=== PATIENT | male | born 1965 | race Caucasian/White ===

== ENCOUNTER 2016-11-15 17:13 | Emergency (ER) | payer MEDICAID, OTHER ==
[~2016-11-15] VITALS: Wt 65.5 kg
[2016-11-15] MEDS ORDERED: CEPH-443 PO (17:56)
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
== END 2016-11-15 18:36 | disposition home or self-care (01) ==
LOC: FTE 17:13
DX: S20.412A Abrasion of left back wall of thorax, initial encounter (principal); Y04.0XXA Assault by unarmed brawl or fight, initial encounter
CPT/HCPCS: 99283

== ENCOUNTER 2017-04-20 20:43 | Emergency (ER) | payer SELFPAY ==
[~2017-04-20] VITALS: Ht 177.8 cm; Wt 60.5 kg
[~2017-04-20 20:43] MED LIST: CEPH-443 PO
[2017-04-20 21:05] VITALS: Ht 177.8 cm; Wt 60.5 kg
== END 2017-04-20 21:47 | disposition left against medical advice (07) ==
LOC: E/R 20:43
DX: Z53.21 Procedure and treatment not carried out due to patient leaving prior to being seen by health care provider (principal)

== ENCOUNTER 2017-04-26 20:11 | Emergency (ER) | payer SELFPAY ==
[~2017-04-26] VITALS: Ht 175.3 cm; Wt 65.0 kg
[2017-04-26 20:24] VITALS: Ht 175.3 cm; Wt 65.0 kg
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
[2017-04-26] MEDS ORDERED: DIPHENHYDRAMINE 50 MG CAP PO ONE (22:30)
[2017-04-26 22:31] LABS: ABNORMAL IP MESSAGE 1; BASOPHILS % 0.1 % (0.0-2.0); HEMATOCRIT 44.3 % (42.0-52.0); HEMOGLOBIN 15.2 g/dl (14.0-18.0); LYMPHOCYTES # 0.5 10^3/ul (0.8-2.9); LYMPHOCYTES % 6.3 % (15.0-51.0); MEAN CORPUSCULAR HEMOGLOBIN 31.8 pg (29.0-33.0); MEAN CORPUSCULAR HGB CONC 34.3 g/dl (32.0-37.0); MEAN CORPUSCULAR VOLUME 92.7 fl (82.0-101.0); MEAN PLATELET VOLUME 9.9 fl (7.4-10.4); MONOCYTE # 0.4 10^3/ul (0.3-0.9); MONOCYTES % 4.7 % (0.0-11.0); NEUTROPHIL # 6.8 10^3/ul (1.6-7.5); NEUTROPHILS % 88.6 % (39.0-77.0); PLATELET COUNT 277 10^3/UL (140-415); POSITIVE DIFF @See below; RED BLOOD COUNT 4.78 10^6/ul (4.70-6.10); RED CELL DISTRIBUTION WIDTH 11.3 % (11.5-14.5); WHITE BLOOD COUNT 7.7 10^3/ul (4.8-10.8)
[2017-04-26 22:33] LABS: ADD UMIC YES; UR ASCORBIC ACID NEGATIVE (NEGATIVE); UR BACTERIA FEW /HPF (NONE SEEN); UR BILIRUBIN (Dip) NEGATIVE (NEGATIVE); UR BLOOD (Dip) NEGATIVE (NEGATIVE); UR CLARITY SLIGHTLY CLOUDY (CLEAR); UR COLOR YELLOW (YELLOW); UR GLUCOSE (Dip) NEGATIVE (NEGATIVE); UR KETONES (Dip) 1+ mg/dL (NEGATIVE); UR LEUKOCYTE ESTERASE (Dip) NEGATIVE Leu/ul (NEGATIVE); UR MUCUS FEW /HPF (NONE SEEN); UR NITRITE (Dip) NEGATIVE (NEGATIVE); UR RBC 1 /HPF (0-5); UR SPECIFIC GRAVITY (Dip) 1.023 (1.003-1.030); UR TOTAL PROTEIN (Dip) 1+ mg/dl (NEGATIVE); UR UROBILINOGEN (Dip) 2+ mg/dL (NEGATIVE)
[2017-04-26 22:51] LABS: BARBITURATES Negative (NEGATIVE); BENZODIAZEPINES Negative (NEGATIVE); CANNABINOIDS Negative (NEGATIVE); COCAINE Positive (NEGATIVE); OPIATES Positive (NEGATIVE)
[2017-04-26] MEDS ORDERED: OXYC20TA41 PO (22:57)
[2017-04-26 23:04] LABS: ALANINE AMINOTRANSFERASE 25 IU/L (13-69); ALBUMIN 4.9 g/dl (3.3-4.9); ALBUMIN/GLOBULIN RATIO 1.02; ALKALINE PHOSPHATASE 142 IU/L (42-121); ANION GAP 15 (8-16); ASPARTATE AMINO TRANSFERASE 40 IU/L (15-46); BILIRUBIN,INDIRECT 0.5 mg/dl (0-1.1); BILIRUBIN,TOTAL 0.5 mg/dl (0.2-1.3); BLOOD UREA NITROGEN 25 mg/dl (7-20); CALCIUM 10.5 mg/dl (8.4-10.2); CARBON DIOXIDE 30 mmol/L (21-31); CHLORIDE 102 mmol/L (97-110); CREATININE 1.47 mg/dl (0.61-1.24); GLUCOSE 88 mg/dl (70-220); POTASSIUM 4.2 mmol/L (3.5-5.1); SODIUM 143 mmol/L (135-144); TOTAL PROTEIN 9.7 g/dl (6.1-8.1)
[2017-04-27 00:05] LABS: ETHANOL < 10.0 mg/dl
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
--- NOTE | 2017-04-27 05:52 | EN ---
Date/Time of Note Date/Time of Note DATE: 04/27/17 TIME: 05:51 ER Progress Note 4Observation Note: Time: [4] hours Family Hx: No Hypertension Evaluation: Multiple exams showed improving symptoms and no evidence of psychiatric decompensation BOO GONZALES Apr 27, 2017 05:52
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
[2017-04-27 12:30] VITALS: BP 130/64; PULSE 74; RESP 22; TEMP 98.3
[2017-04-27] MEDS ORDERED: OLAN5TAB5 PO ×2 (12:45→13:41)
== END 2017-04-27 14:38 | disposition home or self-care (01) ==
LOC: E/R 20:11
DX: R45.1 Restlessness and agitation (principal); L29.9 Pruritus, unspecified; F17.210 Nicotine dependence, cigarettes, uncomplicated; R40.2142 Coma scale, eyes open, spontaneous, at arrival to emergency department; R40.2252 Coma scale, best verbal response, oriented, at arrival to emergency department; R40.2362 Coma scale, best motor response, obeys commands, at arrival to emergency department
CPT/HCPCS: 36415; 80053; 80306; 80307; 81001; 85025; 99283

== ENCOUNTER 2017-05-03 21:13 | Emergency (ER) | payer MEDICAID ==
[~2017-05-03] VITALS: Ht 177.8 cm; Wt 60.0 kg
[~2017-05-03 21:13] MED LIST changes: -CEPH-443 PO; +OLAN5TAB5 PO; +OXYC20TA41 PO
[2017-05-03 21:22] VITALS: Ht 177.8 cm; Wt 60.0 kg
[2017-05-03 22:19] VITALS: BP 119/67; PULSE 67; RESP 15; TEMP 98.1
--- NOTE | 2017-05-03 22:46 | PSY ---
Date/Time of Note Date/Time of Note DATE: 05/03/17 TIME: 22:39 Psychiatric Subjective Eval Consent Pt consented to telemedicine: Yes Subjective Evaluation Patient location: emergency Chief Complaint: "bug comes out of his skin and brought bottle with bugs" was here 04/26 Reason for consult: Bugs on/in his skin History of present illness Pt is a 52 year old male who uses cocaine and an undetermined amount of oxycodone. He has been having a sensation of bugs crawling on his skin. He initially denied recent drug use but then admitted to cocaine use two days ago and opiate use. Patient denies that these are hallucinations. He states "I see them." He has not previous psychiatric history. He denies suicidal ideation and homicidal ideation. He denies hearing voices. Denies paranoia. Past psychiatric history Has been seen for this recently. Hospitalization: no Family History Unknown Medical history Problems Medical Problems: (1) Abrasion Status: Acute (2) Drug abuse Status: Acute (3) Generalized pruritus Status: Acute (4) Patient left after triage Status: Acute (5) Patient left without being seen Status: Acute (6) Restlessness and agitation Status: Acute Allergies: Coded Allergies: No Known Allergy (Unverified , 04/26/17) Substance Abuse Substance use: other Substance abuse history: Yes Social History Level of education: Unknown DPA/Conservatorship: No Occupation/Care Home: NA Psychiatric Objective Eval Physical Examination: Physical Examination: Not Applicable Mental Status Examination: Appearance: Poor Hygiene Eye Contact: Poor Psychomotor Activity: Slow Behavior: Cooperative Speech: Soft AFFECT: Blunt Mood: Anxious Though Process: Linear Thought Content: Hallucinations Suicidal: No Homicidal: No On 72 hour hold: No Orientation: x3 Cognition: Drowsy Insight: Impared Judgement: Impared Attention Span: Distractible Assessment and Plan Assessment/Diagnosis [place] I: Cocaine Use Disorder, Cocaine Induced Psychosis, Opiate Use Disorder Recommendation/Plan Medication Management Patient needs to stop using cocaine. Opiates may also be playing a role in this. However, cocaine is likely culprit. There is no medication treatment for this. However, a small dose of zyprexa 5mg or Ativan 1mg could be given in the ER to help him sleep and calm. But I would not recommend outpatient medications as he is using cocaine and oxycodone. Psychotherapy Attempted to provide psychoeducation regarding the nature of the hallucinations. Patient would not accept. Pt. Caregiver/Family Education N/A Follow-up/Disposition Discharge to home when medically cleared. He looks like he could use some sleep , however. Patient denies si and hi. He does not appear gravely disabled. Recommend outpatient substance abuse/rehab resources. FELICITAS RIVERA May 03, 2017 22:46
[2017-05-03 23:07] LABS: BASOPHILS % 0.7 % (0.0-2.0); EOSINOPHILS # 0.1 10^3/ul (0.0-0.5); EOSINOPHILS % 2.2 % (0.0-7.0); HEMATOCRIT 36.6 % (42.0-52.0); HEMOGLOBIN 12.3 g/dl (14.0-18.0); LYMPHOCYTES # 1.6 10^3/ul (0.8-2.9); LYMPHOCYTES % 39.4 % (15.0-51.0); MEAN CORPUSCULAR HEMOGLOBIN 31.8 pg (29.0-33.0); MEAN CORPUSCULAR HGB CONC 33.6 g/dl (32.0-37.0); MEAN CORPUSCULAR VOLUME 94.6 fl (82.0-101.0); MEAN PLATELET VOLUME 9.8 fl (7.4-10.4); MONOCYTE # 0.4 10^3/ul (0.3-0.9); MONOCYTES % 9.4 % (0.0-11.0); NEUTROPHILS % 48.3 % (39.0-77.0); PLATELET COUNT 242 10^3/UL (140-415); RED BLOOD COUNT 3.87 10^6/ul (4.70-6.10); RED CELL DISTRIBUTION WIDTH 11.5 % (11.5-14.5)
[2017-05-03 23:26] LABS: ALANINE AMINOTRANSFERASE 35 IU/L (13-69); ALBUMIN 4.1 g/dl (3.3-4.9); ALKALINE PHOSPHATASE 84 IU/L (42-121); ANION GAP 13 (8-16); ASPARTATE AMINO TRANSFERASE 24 IU/L (15-46); BILIRUBIN,INDIRECT 0.5 mg/dl (0-1.1); BILIRUBIN,TOTAL 0.5 mg/dl (0.2-1.3); BLOOD UREA NITROGEN 17 mg/dl (7-20); CALCIUM 9.3 mg/dl (8.4-10.2); CARBON DIOXIDE 28 mmol/L (21-31); CHLORIDE 103 mmol/L (97-110); CREATININE 0.99 mg/dl (0.61-1.24); GLUCOSE 123 mg/dl (70-220); POTASSIUM 4.2 mmol/L (3.5-5.1); SODIUM 140 mmol/L (135-144); TOTAL PROTEIN 7.5 g/dl (6.1-8.1)
[2017-05-03 23:32] LABS: ACETAMINOPHEN < 10.0 ug/ml (10.0-30.0); ETHANOL < 10.0 mg/dl; SALICYLATE < 1.0 mg/dl (5.0-30.0)
--- NOTE | 2017-05-04 01:54 | ERD ---
ER Documentation Chief Complaint Date/Time DATE: 05/04/17 TIME: 01:53 Chief Complaint "bug comes out of his skin and brought bottle with bugs" was here 04/26 HPI Is a 49-year-old male says he has bugs coming out of his skin. Was here on 918 for drug abuse. Patient is very tangential does not provide adequate history. Telemetry psychiatry immediately consulted ROS All systems reviewed and are negative except as per history of present illness. Medications Home Meds Active Scripts Olanzapine* (Zyprexa*) 5 Mg Tablet, 5 MG PO QHS, #10 TAB Prov:MARLIN DIAZ MD 04/27/17 Reported Medications Oxycodone Hcl* (Oxycontin*) 20 Mg Tab.er.12h, 20 MG PO Q12, TAB 04/26/17 Discontinued Scripts Olanzapine* (Zyprexa*) 5 Mg Tablet, 5 MG PO QHS, #10 TAB Prov:MARLIN DIAZ MD 04/27/17 Allergies Allergies: Coded Allergies: No Known Allergy (Unverified , 04/26/17) PMhx/Soc History of Surgery: No Anesthesia Reaction: No Hx Neurological Disorder: No Hx Respiratory Disorders: No Hx Cardiac Disorders: Yes (ELEVATED CHOLESTEROL) Hx Psychiatric Problems: No Hx Miscellaneous Medical Probl: No Hx Alcohol Use: No Hx Substance Use: Yes (PRIOR USE OF COCAINE LAST YEAR) Hx Tobacco Use: No Physical Exam Vitals Vital Signs Date Time Temp Pulse Resp B/P Pulse Ox O2 Delivery O2 Flow Rate FiO2 05/03/17 22:19 98.1 67 15 119/67 99 Room Air 05/03/17 21:22 98.5 75 18 145/84 98 Physical Exam Const: [] Head: Atraumatic Eyes: Normal Conjunctiva ENT: Normal External Ears, Nose and Mouth. Neck: Full range of motion..~ No meningismus. Resp: Clear to auscultation bilaterally Cardio: Regular rate and rhythm, no murmurs Abd: Soft, non tender, non distended. Normal bowel sounds Skin: No petechiae or rashes Back: No midline or flank tenderness Ext: No cyanosis, or edema Neur: Awake and alert Psych: Normal Mood and Affect Result Diagram: 05/03/175 05/03/172244 Results 24 hrs Laboratory Tests Test 05/03/17 22:45 White Blood Count 4.010^3/ul Red Blood Count 3.8710^6/ul Hemoglobin 12.3g/dl Hematocrit 36.6% Mean Corpuscular Volume 94.6fl Mean Corpuscular Hemoglobin 31.8pg Mean Corpuscular Hemoglobin Concent 33.6g/dl Red Cell Distribution Width 11.5% Platelet Count 75642^3/UL Mean Platelet Volume 9.8fl Neutrophils % 48.3% Lymphocytes % 39.4% Monocytes % 9.4% Eosinophils % 2.2% Basophils % 0.7% Nucleated Red Blood Cells % 0.0/100WBC Neutrophils # 2.010^3/ul Lymphocytes # 1.610^3/ul Monocytes # 0.410^3/ul Eosinophils # 0.110^3/ul Basophils # 0.010^3/ul Nucleated Red Blood Cells # 0.010^3/ul Sodium Level 140mmol/L Potassium Level 4.2mmol/L Chloride Level 103mmol/L Carbon Dioxide Level 28mmol/L Anion Gap 13 Blood Urea Nitrogen 17mg/dl Creatinine 0.99mg/dl Glucose Level 123mg/dl Calcium Level 9.3mg/dl Total Bilirubin 0.5mg/dl Direct Bilirubin 0.00mg/dl Indirect Bilirubin 0.5mg/dl Aspartate Amino Transf (AST/SGOT) 24IU/L Alanine Aminotransferase (ALT/SGPT) 35IU/L Alkaline Phosphatase 84IU/L Total Protein 7.5g/dl Albumin 4.1g/dl Globulin 3.40g/dl Albumin/Globulin Ratio 1.20 Salicylates Level < 1.0mg/dl Acetaminophen Level < 10.0ug/ml Ethyl Alcohol Level < 10.0mg/dl Procedures/MDM Patient's behavioral symptoms have stabilized while in the department. Patient is medically cleared and appropriate for psychiatric evaluation and work up. No e/o neurologic, toxic, infectious, or metabolic cause. Patient evaluated by telemetry psych and found to be stable for outpatient management. Given outpatient referrals Departure Diagnosis: Primary Impression: Psychiatric disorder Condition: Stable Patient Instructions: Drug Abuse BOO GONZALES May 04, 2017 01:54
== END 2017-05-04 02:59 | disposition home or self-care (01) ==
LOC: E/R 21:13
DX: F99 Mental disorder, not otherwise specified (principal)
CPT/HCPCS: 36415; 80053; 80306; 85025; Z7502; 99284

== ENCOUNTER 2017-06-13 14:08 | Emergency (ER) | payer MEDICAID ==
[~2017-06-13] VITALS: Ht 182.9 cm; Wt 68.0 kg
[2017-06-13 14:16] VITALS: BP 134/85; PULSE 98; RESP 16; TEMP 98.3; Ht 182.9 cm; Wt 68.0 kg
--- NOTE | 2017-06-13 14:27 | ERD ---
ER Documentation Chief Complaint Chief Complaint Agitation HPI This is a 52-year-old male who presents via EMS after being found acting bizarrely at a sober living facility. The patient admits to using cocaine earlier today. He denies any suicidal or homicidal ideation. EMS reports that the patient was initially agitated but not aggressive. He is calm now. Patient denies any headache chest pain or shortness of breath. He denies suicidal or homicidal ideation. He states that he does not want to go back to the sober living facility but wants to go to [place]. He otherwise has no complaints. ROS All systems reviewed and are negative except as per history of present illness. Medications Home Meds Active Scripts Olanzapine* (Zyprexa*) 5 Mg Tablet, 5 MG PO QHS, #10 TAB Prov:MARLIN DIAZ MD 04/27/17 Reported Medications Oxycodone Hcl* (Oxycontin*) 20 Mg Tab.er.12h, 20 MG PO Q12, TAB 04/26/17 Allergies Allergies: Coded Allergies: No Known Allergy (Unverified , 04/26/17) PMhx/Soc Medical and Surgical Hx: pt denies Medical Hx, pt denies Surgical Hx History of Surgery: No Anesthesia Reaction: No Hx Neurological Disorder: No Hx Respiratory Disorders: No Hx Cardiac Disorders: Yes (ELEVATED CHOLESTEROL) Hx Psychiatric Problems: No Hx Miscellaneous Medical Probl: No Hx Alcohol Use: No Hx Substance Use: Yes (Cocaine) Hx Tobacco Use: No Smoking Status: Never smoker FmHx Family History: No diabetes Physical Exam Vitals Vital Signs Date Time Temp Pulse Resp B/P Pulse Ox O2 Delivery O2 Flow Rate FiO2 06/13/17 14:16 98.3 98 16 134/85 96 Room Air 06/13/17 14:16 98.3 98 16 134/85 96 Physical Exam General: Somewhat disheveled but no significant distress Head: Normocephalic, atraumatic. Eyes: Pupils equally reactive, EOM intact ENT: Moist mucous membranes Neck: Supple, no lymphadenopathy Respiratory: Lungs clear bilaterally, no distress Cardiovascular: RRR, no murmurs, rubs, or gallops Abdominal: Soft, non-tender, non-distended, no peritoneal signs : Deferred MSK: No edema, no unilateral swelling, 5/5 strength Neurologic: Poorly cooperative and slightly limited however alert and oriented, moving all extremities, normal speech, no focal weakness, no cerebellar signs Skin: No rash Psych: Poor insight but no suicidal homicidal ideation, no aggressive behavior Procedures/MDM The patient presents for evaluation after acting bizarrely. The patient admits to using his sympathomimetic. He has no evidence of significant intoxication at this point, no significant tachycardia. The patient does have underlying psychiatric illness but no evidence of acute exacerbation or acute psychosis. He is not suicidal not homicidal. The patient has decision-making capacity at this point. He is steady on his feet. He states a desire not to return to the sober living facility. I asked if he would like to speak to social services aide and he said yes. The patient describes an interest to go to [place]. The patient does not appear to be a danger to himself or others at this point. The patient is steady on his feet and able to navigate the community. asphalt plant worker was consulted and the patient can be safely discharged. He has no evidence at this point of acute medical emergency that would require emergent stabilization. We discussed follow up with the patient's primary care doctor within 24 to 48 hours as needed. We also discussed return to the emergency room for worsening symptoms or worsening condition. Outpatient referral: [None required] Departure Diagnosis: Primary Impression: Drug abuse Condition: Stable Patient Instructions: Treating Drug Abuse and Addiction, Drug Abuse Additional Instructions: Call your primary care doctor TOMORROW for an appointment during the next 1 WEEK.Tell the welder 2nd shift that you were referred from this facility.See the doctor sooner or return here if your condition worsens before your appointment time. ROBERT CHEN MD Jun 13, 2017 14:27
--- NOTE | 2017-06-13 14:27 | ERD ---
ER Documentation Chief Complaint Chief Complaint Agitation HPI This is a 52-year-old male who presents via EMS after being found acting bizarrely at a sober living facility. The patient admits to using cocaine earlier today. He denies any suicidal or homicidal ideation. EMS reports that the patient was initially agitated but not aggressive. He is calm now. Patient denies any headache chest pain or shortness of breath. He denies suicidal or homicidal ideation. He states that he does not want to go back to the sober living facility but wants to go to [place]. He otherwise has no complaints. ROS All systems reviewed and are negative except as per history of present illness. Medications Home Meds Active Scripts Olanzapine* (Zyprexa*) 5 Mg Tablet, 5 MG PO QHS, #10 TAB Prov:MARLIN DIAZ MD 04/27/17 Reported Medications Oxycodone Hcl* (Oxycontin*) 20 Mg Tab.er.12h, 20 MG PO Q12, TAB 04/26/17 Allergies Allergies: Coded Allergies: No Known Allergy (Unverified , 04/26/17) PMhx/Soc Medical and Surgical Hx: pt denies Medical Hx, pt denies Surgical Hx History of Surgery: No Anesthesia Reaction: No Hx Neurological Disorder: No Hx Respiratory Disorders: No Hx Cardiac Disorders: Yes (ELEVATED CHOLESTEROL) Hx Psychiatric Problems: No Hx Miscellaneous Medical Probl: No Hx Alcohol Use: No Hx Substance Use: Yes (Cocaine) Hx Tobacco Use: No Smoking Status: Never smoker FmHx Family History: No diabetes Physical Exam Vitals Vital Signs Date Time Temp Pulse Resp B/P Pulse Ox O2 Delivery O2 Flow Rate FiO2 06/13/17 14:16 98.3 98 16 134/85 96 Room Air 06/13/17 14:16 98.3 98 16 134/85 96 Physical Exam General: Somewhat disheveled but no significant distress Head: Normocephalic, atraumatic. Eyes: Pupils equally reactive, EOM intact ENT: Moist mucous membranes Neck: Supple, no lymphadenopathy Respiratory: Lungs clear bilaterally, no distress Cardiovascular: RRR, no murmurs, rubs, or gallops Abdominal: Soft, non-tender, non-distended, no peritoneal signs : Deferred MSK: No edema, no unilateral swelling, 5/5 strength Neurologic: Poorly cooperative and slightly limited however alert and oriented, moving all extremities, normal speech, no focal weakness, no cerebellar signs Skin: No rash Psych: Poor insight but no suicidal homicidal ideation, no aggressive behavior Procedures/MDM The patient presents for evaluation after acting bizarrely. The patient admits to using his sympathomimetic. He has no evidence of significant intoxication at this point, no significant tachycardia. The patient does have underlying psychiatric illness but no evidence of acute exacerbation or acute psychosis. He is not suicidal not homicidal. The patient has decision-making capacity at this point. He is steady on his feet. He states a desire not to return to the sober living facility. I asked if he would like to speak to social insurance administrator and he said yes. The patient describes an interest to go to [place]. The patient does not appear to be a danger to himself or others at this point. The patient is steady on his feet and able to navigate the community. dairy farm worker was consulted and the patient can be safely discharged. He has no evidence at this point of acute medical emergency that would require emergent stabilization. We discussed follow up with the patient's primary care doctor within 24 to 48 hours as needed. We also discussed return to the emergency room for worsening symptoms or worsening condition. Outpatient referral: [None required] Departure Diagnosis: Primary Impression: Drug abuse Condition: Stable Patient Instructions: Treating Drug Abuse and Addiction, Drug Abuse Additional Instructions: Call your primary care doctor TOMORROW for an appointment during the next 1 WEEK.Tell the secretary to the vice president that you were referred from this facility.See the doctor sooner or return here if your condition worsens before your appointment time. ROBERT CHEN MD Jun 13, 2017 14:27
== END 2017-06-13 14:50 | disposition home or self-care (01) ==
LOC: E/R 14:08
DX: F14.10 Cocaine abuse, uncomplicated (principal); R40.2252 Coma scale, best verbal response, oriented, at arrival to emergency department; R40.2142 Coma scale, eyes open, spontaneous, at arrival to emergency department; R40.2362 Coma scale, best motor response, obeys commands, at arrival to emergency department
CPT/HCPCS: 99282

== ENCOUNTER 2017-11-05 12:27 | Emergency (ER) | END 2017-11-06 17:26 ==